=== PATIENT | male | born 1975 | race Caucasian/White ===

== ENCOUNTER 2016-09-04 23:46 | Emergency (ER) | payer SELFPAY ==
--- NOTE | 2016-09-05 00:12 | ED CLINICAL REPORT ---
Clinical Report - Physicians/Mid Levels [facility] [address] [place] [address] 09/04/2016 23:51 Patient: BRENT KERN Time Seen: 0000. Arrived- By private vehicle. Historian- patient. HISTORY OF PRESENT ILLNESS Chief Complaint: EYE IRRITATION and FOREIGN BODY. This started today, involves the right eye and is characterized as moderate in severity. Eye pain, discomfort, redness and irritation. REVIEW OF SYSTEMS No fever, sore throat or cough. All systems otherwise negative, except as recorded above. PAST HISTORY See nurses notes. Tetanus immunization status is up-to-date. Medications: None. Allergies: None. ADDITIONAL NOTES The nursing notes have been reviewed. PHYSICAL EXAM Vital Signs: 09/04/2016 23:56 BP: 155/104. HR: 74. RR: 15. O2 saturation: 99%. Temp: 97.9 F. Oxygen saturation normal. Appearance: Alert. Oriented X3. Patient in mild distress. HEENT: Ears normal. Nose normal. Pharynx normal. Head appears normal to external inspection. Eyes: Visual acuity noted- see nurse's notes. Pupils equal, round and reactive to light. Accommodation normal. Small 1 mm corneal abrasion to the right eye. Small speck of foreign body noted on the patient's cornea which could not be found after patient inadvertently blinked. Negative Gauri sign. No dendritic pattern. Right-sided conjunctival injection. No hypopyon. No hyphema. No other foreign body noted on examination. Rt Eye: Pupil 4mm. Lt Eye: Pupil 4mm. CVS: Normal heart rate and rhythm. Heart sounds normal. Respiratory: No respiratory distress. Breath sounds normal. Abdomen: Nontender. No organomegaly. PROGRESS AND PROCEDURES Course of Care: The patient is a 41-year-old male presenting for evaluation of irritation to the right eye. Patient with corneal abrasion and foreign body noted on examination however could not locate foreign body after initial visualization. Patient with successful irrigation of the eye at bedside with normal saline. Foreign body sensation improved with proparacaine eyedrops. No other signs of infection or irritation. Had a discussion with the patient in regards his workup. Emergency department including diagnosis, home care, follow-up, and return precautions. All questions have been answered. The patient expressed Understanding of these instructions and was agreeable to them. Disposition: Discharged. Condition: good. CLINICAL IMPRESSION 09/04/2016 23:56 BP: 155/104. HR: 74. RR: 15. O2 saturation: 99%. Temp: 97.9 F. Oxygen saturation normal. Small corneal abrasion to the right eye with foreign body. INSTRUCTIONS Warnings: GENERAL WARNINGS: Return or contact your physician immediately if your condition worsens or changes unexpectedly, if not improving as expected, or if other problems arise. Specifically return if pain, vomiting, bleeding, breathing difficulty or fever. Your Current Medications: CONTINUE TAKING THE FOLLOWING MEDICATIONS: None*. Prescription Medications: Erythromycin ophthalmic ointment 0.5% : apply 0.5 inch to inner aspect of the lower lid on the affected eye every 4 hours while awake for 3 days. Dispense three and one half (3.5) grams. No refill. Follow-up: Return to the emergency department as needed. Follow up with your doctor in three days. Reason for referral: recheck today's concerns. Summary of care provided to patient via paper. Screening today revealed the patient's blood pressure to be in the normal range. The patient should follow up with a primary care provider for blood pressure management. Understanding of the discharge instructions verbalized by patient. Follow-up with: Natasha Carcamo MD, Ophthalmology, [facility], [address] [place] [address] Follow up in two days. Reason for referral: recheck today's concerns. Summary of care provided to patient via paper. (Electronically signed by Joe Patrick Dr. 09/11/2016 16:30)
--- NOTE | 2016-09-05 00:12 | ED NURSING NOTES ---
Clinical Report - Nurses [facility] [address] [place] [address] 09/04/2016 23:51 Patient: BRENT KERN TRIAGE Triage time 23:56 Sep 04 2016. Acuity: LEVEL 4. Chief Complaint: REDNESS, PAIN and FOREIGN BODY TO RIGHT EYE. 23:56 09/04/16. Alert. No acute distress. SEPSIS SCREEN: Sepsis Screen. Negative (no infection suspected/documented). VISUAL ACUITY: Visual acuity performed without corrective lenses: left eye 20/25; right eye 20/40; both eyes 20/20 minus two letters. Patient does not wear corrective lenses. MICHAEL COMA SCORE: [place] Coma Scale: 15- eyes open spontaneously (4); best verbal response- oriented x 4 (5); best motor response- obeys commands (6). --00:07 Kat Cardozo 23:56 09/04/16. BP: 155/104. HR: 74. RR: 15. O2 saturation: 99%. Temp: 97.9 F. Pain level now 5/10. --00:07 Kat Cardozo. Weight: 70.3 kg stated. Height/Length: 70 inches Per Patient. BMI: 22.2. --00:04 Kat Cardozo. Medications None. --00:06 Kat Cardozo. Medication/allergy information source: the patient. --00:07 Kat Cardozo. Allergies None. --00:06 Kat Cardozo. History Arrived by private vehicle. Historian: patient. Unaccompanied. Onset. (about 1800 this evening). He may have sustained an injury. Mechanism- unsure. ( Pt reports FB sensation in eye. States that he can see something in his eye. Was rubbing his eye when this started.). He has had eye discomfort, eye irritation and eye discharge. Treatment POWER ORIGINATOR: Irrigation. PAST MEDICAL HX: The patient does not wear contact lenses. Immunizations: up-to-date. SOCIAL HX: Light tobacco smoker (cigarette)- less than 1/2 a pack per day. Occasional alcohol use. History of heavy drug use: marijuana. FALL RISK ASSESSMENT: Fall risk assessment completed. No fall risk identified. NUTRITIONAL RISK ASSESSMENT: The nutritional risk assessment revealed no deficiencies. FUNCTIONAL ASSESSMENT: Functional assessment: no impairments noted. LEARNING NEEDS ASSESSMENT: The learning needs assessment revealed no barriers. SKIN INTEGRITY ASSESSMENT: Skin integrity risk assessment completed. No skin integrity risk identified. --00:07 Kat Cardozo. Assessment The patient states feels the same. --00:07 Kat Cardozo. Interventions ID band on patient. --00:07 Kat Cardozo. PHYSICAL ASSESSMENT 00:09/05/16. Ambulatory to room. GENERAL / NEURO / PSYCH: Alert. Appears in no acute distress. HEENT: No facial asymmetry noted. Pupils equal, round and reactive to light. Conjunctival findings present: redness of the right conjunctiva and thin exudate present in the right eye. Right ear within normal limits. Left ear within normal limits. RESPIRATORY: Respirations not labored. CVS: Capillary refill less than 2 seconds. SKIN: Skin is warm and dry. Normal skin turgor. --00:09 Kat Cardozo. NURSING PROGRESS NOTES 23:58 09/04/16. The plan of care for this patient has been created. Head of bed elevated. Reassurance given. Two patient identifiers checked. Call light placed in reach. Bed placed in lowest position. Brakes of bed on. Patient ready for evaluation- chart flagged and ED physician notified. --00:10 Kat Cardozo 00:02 09/05/2016 Proparacaine Eye Drops 2 drop given. (placed at bedside). --00:02 Tyrese Barth R.NMary 00:02 09/05/2016 FLUORESCEIN Opth soln 1 Strip given. (placed at bedside). --00:02 Tyrese Barth R.N. 00:09/05/2016 FLUORESCEIN Opth soln 1 Strip given. (placed at bedside). --00:02 Tyrese Barth R.N. 00:13 09/05/16. ( Pt irrigated eye with 1 L NS per ERMD instruction.). --00:13 Kat Cardozo. DISPOSITION / DISCHARGE 00:18 09/05/16. Departure time: 00:Sep 05 2016. Condition at departure: improved. The goals identified in the patient's plan of care were met. No learning barriers present. Discharge instructions provided and reviewed with the patient. Reviewed warnings (Patient verbalized awareness of warning s/sx listed in dc paperwork.). Reviewed medication(s). Prescription(s) given to the patient (erythromycin). Treatments reviewed. Reviewed referral to a primary care physician for followup. Patient verbalized understanding. Written instructions provided in Nauruan. The patient was discharged by the physician. He was discharged home and unaccompanied at time of discharge. He left the Emergency Department ambulatory and via private vehicle. Patient driving. FALL RISK ASSESSMENT: Fall risk assessment completed. No fall risk identified. --00:18 Kat Cardozo 00:17 09/05/16. BP: deferred. HR: deferred. RR: deferred. O2 saturation: deferred. Temp: deferred. Pain level now deferred. --00:18 Kat Cardozo. Locked/Released at 09/05/2016 0:18 by Kat Cardozo,
--- NOTE | 2016-09-05 00:12 | ED ORDER SUMMARY ---
..... Patient: BRENT KERN OrderSheet [facility] VisitID: [id number] [address] [place] [address] 41y, M Registration Date/Time: 09/04/2016 ORDER SHEET Weight: 70.3 kg (stated) Allergies: None GENERAL ORDERS: Eye Irrigation (1L NS) (00:08 09/05/2016 Asia Aguilar) (0:10 ASchmuck) MEDICATION ORDERS: Proparacaine Eye Drops (Solution 0.5 %) [address] drops ([address] at bedside) (00:00 09/05/2016 Asia Aguilar) (0:02 JQuivey R.N.) Fluorescein Eye Strips 1 strips (NOW) (00:01 09/05/2016 Asia Aguilar) (0:02 JQuivey R.N.) IV FLUIDS: ORDER SHEET NOTES: [Electronically signed by Kat Cardozo (00:18 09/05/2016)] [Electronically signed by Joe Patrick Dr. (16:30 09/11/2016)] [Electronically locked/signed by Kat Cardozo (00:18 09/05/2016)]
--- NOTE | 2016-09-05 00:12 | ED CLINICAL REPORT ---
Clinical Report - Physicians/Mid Levels [facility] [address] [place] [address] 09/04/2016 23:51 Patient: BRENT KERN Time Seen: 0000. Arrived- By private vehicle. Historian- patient. HISTORY OF PRESENT ILLNESS Chief Complaint: EYE IRRITATION and FOREIGN BODY. This started today, involves the right eye and is characterized as moderate in severity. Eye pain, discomfort, redness and irritation. REVIEW OF SYSTEMS No fever, sore throat or cough. All systems otherwise negative, except as recorded above. PAST HISTORY See nurses notes. Tetanus immunization status is up-to-date. Medications: None. Allergies: None. ADDITIONAL NOTES The nursing notes have been reviewed. PHYSICAL EXAM Vital Signs: 09/04/2016 23:56 BP: 155/104. HR: 74. RR: 15. O2 saturation: 99%. Temp: 97.9 F. Oxygen saturation normal. Appearance: Alert. Oriented X3. Patient in mild distress. HEENT: Ears normal. Nose normal. Pharynx normal. Head appears normal to external inspection. Eyes: Visual acuity noted- see nurse's notes. Pupils equal, round and reactive to light. Accommodation normal. Small 1 mm corneal abrasion to the right eye. Small speck of foreign body noted on the patient's cornea which could not be found after patient inadvertently blinked. Negative Gauri sign. No dendritic pattern. Right-sided conjunctival injection. No hypopyon. No hyphema. No other foreign body noted on examination. Rt Eye: Pupil 4mm. Lt Eye: Pupil 4mm. CVS: Normal heart rate and rhythm. Heart sounds normal. Respiratory: No respiratory distress. Breath sounds normal. Abdomen: Nontender. No organomegaly. PROGRESS AND PROCEDURES Course of Care: The patient is a 41-year-old male presenting for evaluation of irritation to the right eye. Patient with corneal abrasion and foreign body noted on examination however could not locate foreign body after initial visualization. Patient with successful irrigation of the eye at bedside with normal saline. Foreign body sensation improved with proparacaine eyedrops. No other signs of infection or irritation. Had a discussion with the patient in regards his workup. Emergency department including diagnosis, home care, follow-up, and return precautions. All questions have been answered. The patient expressed Understanding of these instructions and was agreeable to them. Disposition: Discharged. Condition: good. CLINICAL IMPRESSION 09/04/2016 23:56 BP: 155/104. HR: 74. RR: 15. O2 saturation: 99%. Temp: 97.9 F. Oxygen saturation normal. Small corneal abrasion to the right eye with foreign body. INSTRUCTIONS Warnings: GENERAL WARNINGS: Return or contact your physician immediately if your condition worsens or changes unexpectedly, if not improving as expected, or if other problems arise. Specifically return if pain, vomiting, bleeding, breathing difficulty or fever. Your Current Medications: CONTINUE TAKING THE FOLLOWING MEDICATIONS: None*. Prescription Medications: Erythromycin ophthalmic ointment 0.5% : apply 0.5 inch to inner aspect of the lower lid on the affected eye every 4 hours while awake for 3 days. Dispense three and one half (3.5) grams. No refill. Follow-up: Return to the emergency department as needed. Follow up with your doctor in three days. Reason for referral: recheck today's concerns. Summary of care provided to patient via paper. Screening today revealed the patient's blood pressure to be in the normal range. The patient should follow up with a primary care provider for blood pressure management. Understanding of the discharge instructions verbalized by patient. Follow-up with: Natasha Carcamo MD, Ophthalmology, [facility], [address] [place] [address] Follow up in two days. Reason for referral: recheck today's concerns. Summary of care provided to patient via paper. (Electronically signed by Joe Patrick Dr. 09/11/2016 16:30)
--- NOTE | 2016-09-05 00:12 | ED ORDER SUMMARY ---
..... Patient: BRENT KERN OrderSheet [facility] VisitID: [id number] [address] [place] [address] 41y, M Registration Date/Time: 09/04/2016 ORDER SHEET Weight: 70.3 kg (stated) Allergies: None GENERAL ORDERS: Eye Irrigation (1L NS) (00:08 09/05/2016 Asia Aguilar) (0:10 ASchmuck) MEDICATION ORDERS: Proparacaine Eye Drops (Solution 0.5 %) 2 drops (place at bedside) (00:00 09/05/2016 Asia Aguilar) (0:02 JQuivey R.N.) Fluorescein Eye Strips 1 strips (NOW) (00:01 09/05/2016 Asia Aguilar) (0:02 JQuivey R.N.) IV FLUIDS: ORDER SHEET NOTES: [Electronically signed by Kat Cardozo (00:18 09/05/2016)] [Electronically signed by Joe Patrick Dr. (16:30 09/11/2016)] [Electronically locked/signed by Kat Cardozo (00:18 09/05/2016)]
--- NOTE | 2016-09-11 16:31 | ED DISCHARGE INSTRUCTIONS ---
Patient: BRENT KERN General Instructions [facility] VisitID: [id number] [place] [address] 41y, M Registration Date/Time: 09/04/2016 09/04/2016 23:56 BP: 155/104. HR: 74. RR: 15. O2 saturation: 99%. Temp: 97.9 F. Oxygen saturation normal. Small corneal abrasion to the right eye with foreign body. INSTRUCTIONS Warnings: GENERAL WARNINGS: Return or contact your physician immediately if your condition worsens or changes unexpectedly, if not improving as expected, or if other problems arise. Specifically return if pain, vomiting, bleeding, breathing difficulty or fever. Your Current Medications: CONTINUE TAKING THE FOLLOWING MEDICATIONS: None*. Prescription Medications: Erythromycin ophthalmic ointment 0.5% : apply 0.5 inch to inner aspect of the lower lid on the affected eye every 4 hours while awake for 3 days. Dispense three and one half (3.5) grams. No refill. Follow-up: Return to the emergency department as needed. Follow up with your doctor in three days. Reason for referral: recheck today's concerns. Summary of care provided to patient via paper. Screening today revealed the patient's blood pressure to be in the normal range. The patient should follow up with a primary care provider for blood pressure management. Understanding of the discharge instructions verbalized by patient. Follow-up with: Natasha Carcamo MD, Ophthalmology, [facility], [address] [place] [address] - [address] [address] Follow up in two days. Reason for referral: recheck today's concerns. Summary of care provided to patient via paper. ADDITIONAL INFORMATION Corneal Abrasion The cornea is the clear part in the front of the eye. This sensitive area is very painful when injured. There may be tearing and your vision may be blurry until healing occurs. You may be sensitive to light. This part of the body heals quickly. You can expect the pain to go away within 24-48 hours. If the abrasion is large or deep, your doctor may apply an eye patch, although this is not always done. An antibiotic ointment or eye drops may also be used to prevent infection. Numbing drops may be used to relieve the pain temporarily so that your eyes can be examined. However, these drops cannot be prescribed for home use because that would slow down the healing process. Also, if you cant feel your eye, there is a chance of accidentally injuring your eye further without knowing it. Home Care: A cold pack (ice in a plastic bag, wrapped in a towel) may be applied over the eye (or eyepatch) for 20 minutes at a time, to reduce pain. You may use acetaminophen (Tylenol) or ibuprofen (Motrin, Advil) to control pain, unless another pain medicine was prescribed. [NOTE: If you have chronic liver or kidney disease or ever had a stomach ulcer or GI bleeding, talk with your doctor before using these medicines.] Rest your eyes and do not read until symptoms are gone. If you use contact lenses, do not wear them until all symptoms are gone. If your vision is affected by the corneal abrasion or if an eyepatch was applied, DO NOT DRIVE a motor vehicle or operate machinery until all symptoms are gone. Otherwise, you would have trouble judging distances with only one eye. If your eyes are sensitive to light, try wearing sunglasses, or stay indoors, until symptoms go away. Follow Up as advised by our staff. Serious abrasions may be referred to an test specialist (nurse licensed practical). If no patch was used but the pain continues for more than 48 hours, you should have another exam. Return to this facility or contact the referral doctor to arrange this. If your eye was patched and if you were asked to remove the patch yourself, see your doctor or return to this facility if your pain is still present after the patch is removed. If you were given a return appointment for patch removal and re-exam, do not miss this. It could be harmful if the patch remains in place longer than advised. Get Prompt Medical Attention if any of the following occur: Increasing eye pain or pain that does not improve after 24 hours Discharge from the eye Increasing redness of the eye or swelling of the eyelids Your vision gets worse Erythromycin Eye ointment What is this medicine? ERYTHROMYCIN (er ith suad MYBurak sin) is a macrolide antibiotic. It is used to treat bacterial eye infections. It also prevents a certain type of eye infection that can occur in some babies. How should I use this medicine? This medicine is only for use in the eye. Follow the directions on the prescription label. Wash hands before and after use. Tilt your head back slightly and pull your lower eyelid down with your index finger to form a pouch. Try not to touch the tip of the tube, to your eye, fingertips, or any other surface. Squeeze the end of the tube to apply a thin layer of the ointment to the inside of the lower eyelid. Close the eye gently to spread the ointment. Your vision may blur for a few minutes. Use your doses at regular intervals. Do not use your medicine more often than directed. Finish the full course prescribed by your doctor or health cardiac care unit nurse even if you think your condition is better. Do not stop using except on the advice of your doctor or health cardiac care unit nurse. Talk to your waitress regarding the use of this medicine in children. Special care may be needed. What side effects may I notice from receiving this medicine? Side effects that you should report to your doctor or health cardiac care unit nurse as soon as possible: allergic reactions like skin rash, itching or hives, swelling of the face, lips, or tongue burning, stinging, or itching of the eyes or eyelids changes in vision redness, swelling, or pain What may interact with this medicine? Interactions are not expected. Do not use any other eye products without telling your doctor or health cardiac care unit nurse. What if I miss a dose? If you miss a dose, use it as soon as you can. If it is almost time for your next dose, use only that dose. Do not use double or extra doses. Where should I keep my medicine? Keep out of the reach of children. Store at room temperature between 15 and 30 degrees C (59 and 86 degrees F). Do not freeze. Throw away any unused ointment after the expiration date. What should I tell my health care provider before I take this medicine? if you have an unusual or allergic reaction to erythromycin, foods, dyes, or preservatives or trying to get breast-feeding What should I watch for while using this medicine? Tell your doctor or health cardiac care unit nurse if your symptoms do not improve in 2 to 3 days. You have been given the following additional information: Corneal Abrasion Erythromycin Eye ointment (Electronically signed by Joe Patrick Dr. 09/11/2016 16:30)
--- NOTE | 2016-09-11 16:31 | ED MAR SUMMARY ---
..... Medication Administration Record [facility] [address] [place] [address] Patient: BRENT KERN Visit ID: [id number] 41y, M Weight: 70.3 kg Height/Length: 70 in BMI: 22.2 ALLERGIES: None Given 00:02 09/05/2016 Tyrese Barth, R.N. Medication Administered: PROPARACAINE [EYE DROPS], Dose: 2 drop Eye Drops. Medication Ordered: Proparacaine Eye Drops (Solution 0.5 %) 2 drops (place at bedside). Given 00:02 09/05/2016 Tyrese Barth, R.N. Medication Administered: FLUORESCEIN [EYE STRIPS], Dose: 1 Strip Opth soln. Medication Ordered: Fluorescein Eye Strips 1 strips (NOW).
--- NOTE | 2016-09-11 16:31 | ED MAR SUMMARY ---
..... Medication Administration Record [facility] [address] [place] [address] Patient: BRENT KERN Visit ID: [id number] 41y, M Weight: 70.3 kg Height/Length: 70 in BMI: 22.2 ALLERGIES: None Given 00:02 09/05/2016 Tyrese Barth, R.N. Medication Administered: PROPARACAINE [EYE DROPS], Dose: 2 drop Eye Drops. Medication Ordered: Proparacaine Eye Drops (Solution 0.5 %) 2 drops (place at bedside). Given 00:02 09/05/2016 Tyrese Barth, R.N. Medication Administered: FLUORESCEIN [EYE STRIPS], Dose: 1 Strip Opth soln. Medication Ordered: Fluorescein Eye Strips 1 strips (NOW).
--- NOTE | 2016-09-11 16:31 | ED MED RECONCILIATION SUMMARY ---
Patient: BRENT KERN Medication Reconciliation Report [facility] VisitID: [id number] [address] [place] [address] 41y, M Registration Date/Time: 09/04/2016 Weight: 70.3 kg Height/Length: 70 in. BMI: 22.2 ALLERGIES: None The patient's Home Medications are listed below: NONE. The source(s) of the original Home Medication information: patient The following Medications were given to the patient in the Emergency Department: Proparacaine [Eye Drops] Eye Drops 2 drop, administered: 09/05/2016 12:02:00 AM FLUORESCEIN [EYE STRIPS] Opth soln 1 Strip, administered: 09/05/2016 12:02:00 AM The following Medications were prescribed to the patient: Erythromycin ophthalmic ointment 0.5% : apply 0.5 inch to inner aspect of the lower lid on the affected eye every 4 hours while awake for 3 days. Dispense three and one half (3.5) grams. No refill. -- Joe Patrick Dr.
--- NOTE | 2016-09-11 16:31 | ED MED RECONCILIATION SUMMARY ---
Patient: BRENT KERN Medication Reconciliation Report [facility] VisitID: [id number] [address] [place] [address] 41y, M Registration Date/Time: 09/04/2016 Weight: 70.3 kg Height/Length: 70 in. BMI: 22.2 ALLERGIES: None The patient's Home Medications are listed below: NONE. The source(s) of the original Home Medication information: patient The following Medications were given to the patient in the Emergency Department: Proparacaine [Eye Drops] Eye Drops 2 drop, administered: 09/05/2016 12:02:00 AM FLUORESCEIN [EYE STRIPS] Opth soln 1 Strip, administered: 09/05/2016 12:02:00 AM The following Medications were prescribed to the patient: Erythromycin ophthalmic ointment 0.5% : apply 0.5 inch to inner aspect of the lower lid on the affected eye every 4 hours while awake for 3 days. Dispense three and one half (3.5) grams. No refill. -- Joe Patrick Dr.
--- NOTE | 2016-09-11 16:31 | ED DISCHARGE INSTRUCTIONS ---
Patient: BRENT KERN General Instructions [facility] VisitID: [id number] [place] [address] 41y, M Registration Date/Time: 09/04/2016 09/04/2016 23:56 BP: 155/104. HR: 74. RR: 15. O2 saturation: 99%. Temp: 97.9 F. Oxygen saturation normal. Small corneal abrasion to the right eye with foreign body. INSTRUCTIONS Warnings: GENERAL WARNINGS: Return or contact your physician immediately if your condition worsens or changes unexpectedly, if not improving as expected, or if other problems arise. Specifically return if pain, vomiting, bleeding, breathing difficulty or fever. Your Current Medications: CONTINUE TAKING THE FOLLOWING MEDICATIONS: None*. Prescription Medications: Erythromycin ophthalmic ointment 0.5% : apply 0.5 inch to inner aspect of the lower lid on the affected eye every 4 hours while awake for 3 days. Dispense three and one half (3.5) grams. No refill. Follow-up: Return to the emergency department as needed. Follow up with your doctor in three days. Reason for referral: recheck today's concerns. Summary of care provided to patient via paper. Screening today revealed the patient's blood pressure to be in the normal range. The patient should follow up with a primary care provider for blood pressure management. Understanding of the discharge instructions verbalized by patient. Follow-up with: Natasha Carcamo MD, Ophthalmology, [facility], [address] [place] [address] - [address] [address] Follow up in two days. Reason for referral: recheck today's concerns. Summary of care provided to patient via paper. ADDITIONAL INFORMATION Corneal Abrasion The cornea is the clear part in the front of the eye. This sensitive area is very painful when injured. There may be tearing and your vision may be blurry until healing occurs. You may be sensitive to light. This part of the body heals quickly. You can expect the pain to go away within 24-48 hours. If the abrasion is large or deep, your doctor may apply an eye patch, although this is not always done. An antibiotic ointment or eye drops may also be used to prevent infection. Numbing drops may be used to relieve the pain temporarily so that your eyes can be examined. However, these drops cannot be prescribed for home use because that would slow down the healing process. Also, if you cant feel your eye, there is a chance of accidentally injuring your eye further without knowing it. Home Care: A cold pack (ice in a plastic bag, wrapped in a towel) may be applied over the eye (or eyepatch) for 20 minutes at a time, to reduce pain. You may use acetaminophen (Tylenol) or ibuprofen (Motrin, Advil) to control pain, unless another pain medicine was prescribed. [NOTE: If you have chronic liver or kidney disease or ever had a stomach ulcer or GI bleeding, talk with your doctor before using these medicines.] Rest your eyes and do not read until symptoms are gone. If you use contact lenses, do not wear them until all symptoms are gone. If your vision is affected by the corneal abrasion or if an eyepatch was applied, DO NOT DRIVE a motor vehicle or operate machinery until all symptoms are gone. Otherwise, you would have trouble judging distances with only one eye. If your eyes are sensitive to light, try wearing sunglasses, or stay indoors, until symptoms go away. Follow Up as advised by our staff. Serious abrasions may be referred to an process laboratory specialist (metal mockup maker). If no patch was used but the pain continues for more than 48 hours, you should have another exam. Return to this facility or contact the referral doctor to arrange this. If your eye was patched and if you were asked to remove the patch yourself, see your doctor or return to this facility if your pain is still present after the patch is removed. If you were given a return appointment for patch removal and re-exam, do not miss this. It could be harmful if the patch remains in place longer than advised. Get Prompt Medical Attention if any of the following occur: Increasing eye pain or pain that does not improve after 24 hours Discharge from the eye Increasing redness of the eye or swelling of the eyelids Your vision gets worse Erythromycin Eye ointment What is this medicine? ERYTHROMYCIN (er ith suad MYBurak sin) is a macrolide antibiotic. It is used to treat bacterial eye infections. It also prevents a certain type of eye infection that can occur in some babies. How should I use this medicine? This medicine is only for use in the eye. Follow the directions on the prescription label. Wash hands before and after use. Tilt your head back slightly and pull your lower eyelid down with your index finger to form a pouch. Try not to touch the tip of the tube, to your eye, fingertips, or any other surface. Squeeze the end of the tube to apply a thin layer of the ointment to the inside of the lower eyelid. Close the eye gently to spread the ointment. Your vision may blur for a few minutes. Use your doses at regular intervals. Do not use your medicine more often than directed. Finish the full course prescribed by your doctor or health healthcare applications analyst even if you think your condition is better. Do not stop using except on the advice of your doctor or health healthcare applications analyst. Talk to your physician underwriter regarding the use of this medicine in children. Special care may be needed. What side effects may I notice from receiving this medicine? Side effects that you should report to your doctor or health healthcare applications analyst as soon as possible: allergic reactions like skin rash, itching or hives, swelling of the face, lips, or tongue burning, stinging, or itching of the eyes or eyelids changes in vision redness, swelling, or pain What may interact with this medicine? Interactions are not expected. Do not use any other eye products without telling your doctor or health healthcare applications analyst. What if I miss a dose? If you miss a dose, use it as soon as you can. If it is almost time for your next dose, use only that dose. Do not use double or extra doses. Where should I keep my medicine? Keep out of the reach of children. Store at room temperature between 15 and 30 degrees C (59 and 86 degrees F). Do not freeze. Throw away any unused ointment after the expiration date. What should I tell my health care provider before I take this medicine? if you have an unusual or allergic reaction to erythromycin, foods, dyes, or preservatives or trying to get breast-feeding What should I watch for while using this medicine? Tell your doctor or health healthcare applications analyst if your symptoms do not improve in 2 to 3 days. You have been given the following additional information: Corneal Abrasion Erythromycin Eye ointment (Electronically signed by Joe Patrick Dr. 09/11/2016 16:30)
== END 2016-09-05 00:18 | disposition home or self-care (01) ==
LOC: ED SRH 23:46
DX: T15.01XA Foreign body in cornea, right eye, initial encounter (principal); X58.XXXA Exposure to other specified factors, initial encounter; Y93.9 Activity, unspecified; Y99.9 Unspecified external cause status; Y92.9 Unspecified place or not applicable